=== PATIENT | female | born 1955 | race Caucasian/White ===

== ENCOUNTER 2018-09-17 18:52 | Emergency (ER) | payer OTHER ==
[~2018-09-17] VITALS: Ht 160 cm; Wt 77.1 kg
[~2018-09-17 18:52] MED LIST: Calcium 500 MG1 EACH PO; DIPH50 PO; ENOX40I SC; HTN MED; LEVFLO500 PO; LISI5 PO; NAPR500 PO; OXYACE5T PO; PSEHYDGUAL PO; VITAMIN D400 UNI1 PO
[2018-09-17] MEDS ORDERED: HYDCHL25 PO (20:24)
== END 2018-09-17 21:20 | disposition home or self-care (01) ==
LOC: ER 18:52
DX: S20.212A Contusion of left front wall of thorax, initial encounter (principal); W19.XXXA Unspecified fall, initial encounter; Z88.2 Allergy status to sulfonamides; Z79.899 Other long term (current) drug therapy; I10 Essential (primary) hypertension
CPT/HCPCS: 71101; 99283-25